=== PATIENT | female | born 1935 | race Caucasian/White ===

== ENCOUNTER 2016-11-11 06:56 | Emergency (ER) | payer OTHER ==
--- NOTE | 2016-11-11 07:03 | PDOC ---
History of Present Illness - General Chief Complaint: Nasal Bleeding Stated Complaint: NOSEBLEED Time Seen by Provider: 11/11/16 06:58 History Source: Patient - History of Present Illness Initial Comments: 11/11/16 07:29 Patient is a 81-year-old female with past medical history of CHF, who presents to the emergency department today complaining of nosebleeds. Patient states that she had a nosebleed earlier this morning that lasted approximately one hour. She states she used half a box of tissues to stop the bleeding. Denies using direct pressure to the area. Patient states that she has not had any bleeding from her nose since arrival to the emergency department. Admits to tasting blood, and lightheadedness. Denies blood thinner use. Patient wears oxygen at home via a nasal cannula. Denies recent illness, weakness, headache, chest pain, palpitations, shortness of breath, nausea, and vomiting. Past History - Travel Traveled outside of the country in the last 30 days: No Close contact w/someone who was outside of country & ill: No - Past Medical History Allergies/Adverse Reactions: Allergies Allergy/AdvReac Type Severity Reaction Status Date / Time levofloxacin [From Levaquin] Allergy Verified 12/25/15 00:54 Home Medications: Ambulatory Orders Vit A/Vit C/Vit E/Zinc/Copper [Preservision Tablet] 1 each PO DAILY tablet 04/23 Cholecalciferol (Vitamin D3) [Vitamin D3] 1,000 unit PO DAILY 08/30/15 Cholecalciferol (Vitamin D3) [Vitamin D3] 2,000 unit PO DAILY capsule 01/12/16 Docusate Sodium [Stool Softener] 100 mg PO BID capsule 01/12/16 Magnesium Oxide [Magnesium] 400 mg PO DAILY capsule 01/12/16 Anemia: No Asthma: No Cancer: No Cardiac Disorders: No CVA: No COPD: No CHF: No Dementia: No Diabetes: Yes GI Disorders: No Disorders: No HTN: Yes Hypercholesterolemia: Yes Liver Disease: No Seizures: No Thyroid Disease: No - Surgical History Abdominal Surgery: Yes (SEE BELOW) Appendectomy: Yes (1962) Cardiac Surgery: No Cholecystectomy: Yes (1962) Lung Surgery: No Neurologic Surgery: No Orthopedic Surgery: No - Immunization History Immunization Up to Date: No - Psycho/Social/Smoking Cessation Hx Anxiety: No Suicidal Ideation: No Smoking History: Former smoker Have you smoked in the past 12 months: No If you are a former smoker, when did you quit?: 1991 Hx Alcohol Use: No Drug/Substance Use Hx: No Substance Use Type: None Hx Substance Use Treatment: No Review of Systems - Review of Systems Able to Perform ROS?: Yes Is the patient limited Danish proficient: No HEENTM: Yes: Nose Bleeding (Left nostril). No: Recent change in vision, Nose Pain, Nose Congestion, Throat Pain, Mouth Pain, Difficulty Swallowing Respiratory: No: Cough, Shortness of Breath Cardiac (ROS): Yes: Lightheadedness. No: Chest Pain, Edema, Palpitations ABD/GI: No: Nausea, Vomiting, Indigestion Hematologic/Lymphatic: No: Anemia, Blood Clots, Easy Bleeding *Physical Exam - Physical Exam General Appearance: Yes: Nourished, Appropriately Dressed, Obese, Other (Laying on hospital bed, no active bleeding. AAOx3, breathing easily). No: Apparent Distress HEENT: positive: EOMI, KELLY, Normal ENT Inspection, TMs Normal, Pharynx Normal. negative: Pale Conjunctivae, Pharyngeal Erythema, Tonsillar Exudate, Tonsillar Erythema, Nasal Congestion, Rhinorrhea, Other (No active nose bleed noted at this time. No blood in the posterior pharynx.) Neck: positive: Trachea midline, Supple. negative: Tender, Rigid, Lymphadenopathy (R), Lymphadenopathy (L) Respiratory/Chest: positive: Lungs Clear, Normal Breath Sounds. negative: Respiratory Distress, Accessory Muscle Use Cardiovascular: positive: Regular Rhythm, Regular Rate, S1, S2 (present). negative: Murmur Integumentary: positive: Normal Color, Dry, Warm. negative: Pale, Cold, Clammy Neurologic: positive: stock roller II-XII NML intact, Fully Oriented, Alert, Normal Mood/ Affect, Normal Response, Motor Strength 5/5 Medical Decision Making - Medical Decision Making 11/11/16 07:33 Patient is a 81-year-old female past medical history of CHF who presents to the emergency department with history of recent nosebleeds. Patient is no longer currently bleeding. Explained to patient that there is nothing to do at this time since there is no active bleeding. Instructed the patient on how to hold direct pressure to the nose to stop future nosebleeds. Explained to patient that if she has nose bleeds recurring in the next couple of days that she should come back for evaluation. Patient understands all discharge instructions and all questions were answered at this time. *DC/Admit/Observation/Transfer Diagnosis at time of Disposition: Epistaxis - Discharge Dispostion Disposition: HOME Condition at time of disposition: Improved - Referrals Referrals: Jesse Cornejo MD [Staff Physician] - Call tomorrow - Patient Instructions Printed Discharge Instructions: DI for Nosebleed Additional Instructions: If the bleeding reoccurs, hold direct pressure to both sides of the nose as we instructed you to do. Hold pressure for 20 minutes, without stopping, and without looking to see if the bleeding has stopped. Release the pressure only after 20 minutes of constant pressure. If the bleeding continues, performed the same direct pressure maneuver again for 20 minutes. If the bleeding continues after that, performed the same direct pressure maneuver again for 20 minutes. At that point in time, if you continue to bleed, come back to the emergency department. Return to the emergency department immediately with ANY new, persistent or worsening symptoms. You MUST call and follow up with your doctor tomorrow. Please make sure your doctor reviews the results of your emergency department evaluation.
--- NOTE | 2016-11-11 07:11 | PDOC ---
*Physical Exam - Physical Exam Comments: 11/11/16 07:11 Pt seen by the Advanced Practice Provider under my direct supervision Pt interviewed and examined There is no current bleeding I agree with plan as outlined by the Advanced Practice Provider *DC/Admit/Observation/Transfer Diagnosis at time of Disposition: Epistaxis - Discharge Dispostion Disposition: HOME Condition at time of disposition: Improved - Referrals Referrals: Jesse Cornejo MD [Staff Physician] - Call tomorrow - Patient Instructions Printed Discharge Instructions: DI for Nosebleed Additional Instructions: If the bleeding reoccurs, hold direct pressure to both sides of the nose as we instructed you to do. Hold pressure for 20 minutes, without stopping, and without looking to see if the bleeding has stopped. Release the pressure only after 20 minutes of constant pressure. If the bleeding continues, performed the same direct pressure maneuver again for 20 minutes. If the bleeding continues after that, performed the same direct pressure maneuver again for 20 minutes. At that point in time, if you continue to bleed, come back to the emergency department. Return to the emergency department immediately with ANY new, persistent or worsening symptoms. You MUST call and follow up with your doctor tomorrow. Please make sure your doctor reviews the results of your emergency department evaluation.
[2016-11-11 07:14] VITALS: BP 138/52; PULSE 70; TEMP 98.1; BMI 49.8
== END 2016-11-11 07:47 | disposition home or self-care (01) ==
LOC: FER 06:56
DX: R04.0 Epistaxis (principal); I50.9 Heart failure, unspecified; E11.9 Type 2 diabetes mellitus without complications; I10 Essential (primary) hypertension; E78.00 Pure hypercholesterolemia, unspecified; Z87.891 Personal history of nicotine dependence
CPT/HCPCS: 99281-25